=== PATIENT | female | born 1945 | race Caucasian/White ===

== ENCOUNTER → 2018-01-12 | Outpatient (CLI) | payer OTHER, MEDICARE | LOC: BHFA 14:45 | PROVIDERS: ATTEND Internal Medicine Cardiovascular Disease | DX: I42.9 Cardiomyopathy, unspecified (principal); I48.91 Unspecified atrial fibrillation ==

== ENCOUNTER → 2018-01-28 | Outpatient (CLI) | payer OTHER, MEDICARE | LOC: BHFA 15:30 | PROVIDERS: ATTEND Internal Medicine Cardiovascular Disease | DX: I48.91 Unspecified atrial fibrillation (principal); I42.2 Other hypertrophic cardiomyopathy ==

== ENCOUNTER 2018-08-07 04:13 | Observation (INO) | payer OTHER, MEDICARE ==
[2018-08-07] MEDS ORDERED: SILVER NITRATE APPLICATOR 1 APPL TP ONE ×2 (04:19→04:38)
[2018-08-07] MEDS ORDERED: OXYMETAZOLINE 30 ML NASAL SPRAY ONE (04:19)
--- NOTE | 2018-08-07 04:20 | EDPHY ---
H & P Stated Complaint: Nose bleed since 229, blood thinnners Time Seen by Provider: 08/07/18 04:24 HPI/ROS: HPI CHIEF COMPLAINT: Epistaxis Right Nare HISTORY OF PRESENT ILLNESS: 73-year-old female, presents emergency room with Right Nare epistaxis. This started around 2:00 a.m. It is now 430 in the morning. Patient reports to me this started after she was washing her face. She is on Xarelto. Denies direct facial trauma. Could not get the bleeding to stop at home. Past Medical History: AFib, cardiomyopathy Past Surgical History: denies recent surgery Social History: Denies drugs alcohol tobacco Family History: Noncontributory ROS REVIEW OF SYSTEMS: 10 Systems were reviewed and negative with the exception of the elements mentioned in the history of present illness. Exam Constitutional triage nursing summary reviewed, vital signs reviewed, awake/ alert. Eyes normal conjunctivae and sclera, EOMI, PERRLA. HENT Right Nare: Epistaxis anterior present. Left Nare: normal. Posterior pharynx unremarkable. normal inspection, atraumatic, moist mucus membranes, no epistaxis, neck supple/ no meningismus, no raccoon eyes. Respiratory clear to auscultation bilaterally, normal breath sounds, no respiratory distress, no wheezing. Cardiovascular rate normal, regular rhythm, no murmur, no edema, distal pulses normal. Gastrointestinal soft, non-tender, no rebound, no guarding, normal bowel sounds, no distension, no pulsatile mass. Genitourinary no CVA tenderness. Musculoskeletal no midline vertebral tenderness, full range of motion, no calf swelling, no tenderness of extremities, no meningismus, good pulses, neurovascularly intact. Skin pink, warm, & dry, no rash, skin atraumatic. Neurologic awake, alert and oriented x 3, AAOx3, moves all 4 extremities equally, motor intact, sensory intact, CN II-XII intact, normal cerebellar, normal vision, normal speech. Psychiatric normal mood/affect. Heme/Lymph/Immune no lymphadenopathy. Differential Diagnosis: Includes but is not limited to in a particular order epistaxis on blood thinners. Anterior nose bleed. Posterior nosebleed. Medical Decision Making: Plan for this patient I was able to directly visualize her right anterior Nose Bleed. Will cauterize. And hold direct pressure and re-evaluate. Re-evaluation: 0425: Epistaxis Right Nare Bleeding: Silver nitrate stick applied. Able to cauterize. Nasal clamp in place. Will re-evaluate. 0517: Patient re-evaluated. Continues to have slight venous oozing from the right Nare. Appears to be anterior. Given that the saw nitrate stick did not fully cauterize it will place a rhino rocket 7.5 AP. Soaked in Afrin. Rhino rocket was placed 7.5 AP in the right near. Soaked in Afrin. She tolerated this well. She understands to have the packing removed in 24 hr. Follow up here or ENT. 5:33 a.m.. Notified by nursing staff that the patient is having a vasovagal episode in the room. She did not have a syncopal episode. Blood pressure and heart rate check heart rate 67, blood pressure 83/59. She just had a right nare rocket placed. Will establish an IV basic blood work IV fluid bolus and monitor. Patient re-evaluated at this time. 6:29 a.m.. Heart rate 71, AFib, pulse ox 90 % on room air. Blood pressure 158/86. 0708: Patient will be admitted to the hospital for ongoing right [place] epistaxis which is well controlled with rhino rocket this time. Additionally the patient has significant vagal event here. Her blood pressure did get down very low in this 60 systolic and heart rates in the 40s. However she recovered after IV fluids. She would prefer to be observed today with rhino rocket and given her vasovagal event. Plan for hospital admission for observation today. She is comfortable this plan. Source: Patient - Personal History Current Tetanus Diphtheria and Acellular Pertussis (TDAP): Yes Tetanus Vaccine Date: 2009 - Medical/Surgical History Hx Asthma: No Hx Chronic Respiratory Disease: No Hx Diabetes: No Hx Cardiac Disease: Yes Hx Renal Disease: No Hx Cirrhosis: No Hx Alcoholism: No Hx HIV/AIDS: No Hx Splenectomy or Spleen Trauma: No Other PMH: afib, HTN, cholesterol/triglycerides, cardiomyopathy - Social History Smoking Status: Former smoker Constitutional: Initial Vital Signs Temperature (C) 36.7 C 08/07/18 04:17 Heart Rate 78 08/07/18 04:17 Respiratory Rate 18 08/07/18 04:17 Blood Pressure 174/115 H 08/07/18 04:17 O2 Sat (%) 94 08/07/18 04:17 O2 Delivery Mode Nasal Cannula O2 (L/minute) 3 Allergies/Adverse Reactions: No Known Allergies Allergy (Verified 08/07/18 04:14) Home Medications: Medication Instructions Recorded Multivitamins [Multivitamin (*)] 1 each PO DAILY 12/15/12 Girard-3 Fatty Acids [Fish Oil 1000 1,000 mg PO DAILY 12/15/12 mg (*)] Simvastatin [Zocor 20 mg] 20 mg PO DAILY18 12/15/12 Furosemide [Lasix 40 MG (*)] 40 mg PO MWF 12/18/15 Amoxicillin/Clavulanate Pot 875 mg PO BID #14 tab 08/07/18 [Augmentin 875 MG TAB (*)] Metoprolol Succinate Xr [Toprol Xl 100 mg PO BID 08/07/18 100 mg (*)] Travoprost Z 0.004% [Travatan Z 1 drops EACHEYE HS 08/07/18 0.004% (*)] oxyCODONE IR [Oxycodone Ir (*)] 5 mg PO Q6H PRN #10 tab 08/07/18 Medical Decision Making - Data Points Laboratory Results: Laboratory Results 08/07/18 05:40 08/07/18 05:40 Medications Given: Discontinued Medications Acetaminophen (Tylenol) 1,000 mg PO EDNOW ONE Stop: 08/07/18 07:20 Last Admin: 08/07/18 07:24 Dose: 1,000 mg Amoxicillin/Clavulanate Potassium (Augmentin 875mg) 875 mg PO BID ALMA PRN Reason: Protocol Stop: 09/06/18 09:44 Last Admin: 08/07/18 10:17 Dose: 875 mg Sodium Chloride (Ns) 1,000 mls @ 0 mls/hr IV EDNOW ONE; Wide Open PRN Reason: Protocol Stop: 08/07/18 05:34 Last Admin: 08/07/18 05:48 Dose: 1,000 mls Metoprolol Succinate (Toprol Xl) 50 mg PO BID ALMA Stop: 02/03/19 09:44 Last Admin: 08/07/18 10:17 Dose: 50 mg Metoprolol Tartrate (Lopressor) 50 mg PO ONCE ONE Stop: 08/07/18 13:54 Last Admin: 08/07/18 15:37 Dose: 50 mg Oxycodone HCl (Oxycodone Ir) 5 mg PO Q4HRS PRN PRN Reason: Pain, Severe Able to Take PO Stop: 08/17/18 09:59 Last Admin: 08/07/18 15:38 Dose: 5 mg Oxymetazoline HCl (Afrin Nasal [place]) 2 sprays EACHNARE EDNOW ONE Stop: 08/07/18 04:40 Last Admin: 08/07/18 04:40 Dose: Not Given Silver Nitrate/Potassium Nitrate (Silver Nitrate Applicator) 1 each TP EDNOW ONE Stop: 08/07/18 04:39 Last Admin: 08/07/18 04:40 Dose: Not Given Departure - Departure Disposition: [facility] Acute Clinical Impression: Epistaxis, Vasovagal attack Condition: Good
[2018-08-07] MEDS ORDERED: OXYMETAZOLINE 30 ML NASAL SPRAY EACHNARE ONE (04:39)
[2018-08-07] MEDS ORDERED: NS 1,000 ML IV ONE (05:33)
[2018-08-07 05:54] LABS: PLATELET COUNT 205 10^3/uL (150-400)
[2018-08-07] MEDS ORDERED: ACETAMINOPHEN 500 MG TAB PO ONE (07:19)
[2018-08-07] MEDS ORDERED: ONDANSETRON 4 MG/2 ML VIAL IVP PRN (09:23)
[2018-08-07] MEDS ORDERED: ONDANSETRON DISINTEGRATING 4 MG TAB PO PRN (09:23)
[2018-08-07] MEDS ORDERED: ACETAMINOPHEN 325 MG TAB PO PRN (09:23)
[2018-08-07] MEDS ORDERED: METOPROLOL SUCCINATE XR 100 MG TAB PO SCH (09:45)
[2018-08-07] MEDS ORDERED: AMOXICILLIN/CLAVULANATE POT 875/125 MG TAB PO SCH (09:45)
[2018-08-07] MEDS: oxyCODONE IR 5 MG TAB PO PRN ×2 (10:17→15:38)
--- NOTE | 2018-08-07 12:29 | ASMTCMCOM ---
CM Note CM Note Notes: CM spoke to MICHEAL Desai. Pt is 73 y/o female admitted for epistaxis right nare. Pt will most likely d/c independent when medically stable. No therapies ordered at this time. CM available for changes. Plan: Independent Date Signed: 08/07/2018 12:28 PM Electronically Signed By:CARL Ruiz
[2018-08-07] MEDS ORDERED: METOPROLOL TARTRATE 50 MG TAB PO ONE (13:53)
[2018-08-07 15:11] VITALS: BP 168/111
--- NOTE | 2018-08-07 16:45 | PDDCSUM ---
Discharge Summary Discharge Summary: Date of admission: 08/07/2018 Date of discharge: 08/07/2018 Discharge Dx: Epistaxis, likely anterior A fib Chronic anticoagulation Hypertension Hx: 73 yo female on Xarelto for A fib presented with epistaxis. Rhino rocket was placed in the ED and shortly after she had a vasovagal episode with brief hypotension. This resolved and she was hypertensive after arriving to the PCU. She was observed for several hours on the PCU with no further bleeding. Case with discussed with ENT, Dr. Lea, who recommended leaving packing in place for 72 hrs due to risk of rebleeding if removed sooner, especially with Xarelto on board. Xarelto was held. She is advised to continue to hold this until follow up with ENT on Friday, at which time packing can be removed. She will then f/u with Dr. Landeros, her living coach, to determine when to restart Xarelto. She is given 1 week of Augmentin for infection prevention with nasal packing in place. Return to ED if recurrent bleeding. D/C meds: Augmentin 875 mg po bid x7 d, Oxycodone 2.5-5 mg po q6h prn pain F/U: 1. Dr. Lea, ENT Friday. Her office will contact pt to arrange. 2. Dr. Landeros, cardiology, to discuss timing of resuming Xarelto, which is held at discharge
[2018-08-07] MEDS ORDERED: TRAVOPROST Z 0.004% 2.5 ML OPHT.BTL EACHEYE SCH (21:00)
[2018-08-08] MEDS ORDERED: ATORVASTATIN CALCIUM 10 MG TAB PO SCH (09:00)
[2018-08-10] MEDS ORDERED: FUROSEMIDE 40 MG TAB PO SCH (08:00)
== END 2018-08-07 17:42 | disposition home or self-care (01) ==
LOC: F2W 08:56
PROVIDERS: ADMIT Family Medicine; ATTEND Family Medicine
PROC: 093K7ZZ Control Bleeding in Nasal Mucosa and Soft Tissue, Via Natural or Artificial Opening (ICD-10-PCS; principal; 2018-08-07)
PROC: 2Y41X5Z Packing of Nasal Region using Packing Material (ICD-10-PCS; principal; 2018-08-07)
DX: R55 Syncope and collapse (principal); I95.9 Hypotension, unspecified; R04.0 Epistaxis; I48.91 Unspecified atrial fibrillation; I10 Essential (primary) hypertension; I42.9 Cardiomyopathy, unspecified; Z79.01 Long term (current) use of anticoagulants
CPT/HCPCS: 30901; G0378